=== PATIENT | female | born 1980 | race Hispanic/Latino ===

== ENCOUNTER 2020-02-04 18:33 | Emergency (ER) | payer SELFPAY ==
[~2020-02-04] VITALS: Ht 162.6 cm; Wt 59.0 kg
--- NOTE | 2020-02-04 18:52 | Emergency Department Note ---
History of Present Illnes History of Present Illness Chief Complaint: COVID PUI History of Present Illness This is a 39 year old female WHO TESTED POSITIVE FOR COVID 19 ON January PRESENTS WITH C/P FEVER, CHILLS, COUGH, SOB, BODY ACHES FOR PAST 8 DAYS, STATES TODAY DEVELOPED BURNING WITH URINATION. . Historian: Patient Arrival Mode: Car Onset (how long ago): day(s) (8) Location: ALL OVER Quality: BODY ACHES, BURNING WITH URINATION, COUGH, FEVER, CHILLS Radiation: Reports non-radiation Severity: moderate Onset quality: gradual Duration (how long): day(s) (8) Timing of current episode: constant Progression: unchanged Chronicity: new Context: Reports recent illness (POSITIVE FOR COVID 19) Relieving factors: none Exacerbating factors: none Associated symptoms: Reports cough, Reports diaphoresis, Reports fever/chills, Reports shortness of breath, Reports weakness, Reports other (BURNING WITH URINATION) Treatments prior to arrival: antipyretic Past Medical/Family History Physician Review I have reviewed the patient's past medical and family history. Any updates have been documented here. Past Medical History Recent Fever: Yes Clinical Suspicion of Infectio: Yes New/Unexplained Change in Ment: No Past Medical History: None Past Surgical History: Cholecysctectomy Social History Smoking Cessation: Never Smoker Counseling Performed: No Alcohol Use: None Any Illegal Drug Use: No Physically hurt or threatened: No Family History Family history of heart diseas: No Other Any Pre-Existing Lines (PICC,: No Review of Systems Review of Systems EENTM: Reports no symptoms Cardiovascular: Reports no symptoms Respiratory: Reports as per HPI Gastrointestinal: Reports no symptoms Genitourinary: Reports as per HPI Musculoskeletal: Reports no symptoms Integumentary: Reports no symptoms Neurological: Reports no symptoms Psychological: Reports no symptoms Endocrine: Reports no symptoms Hematological/Lymphatic: Reports no symptoms Physical Exam Related Data Allergies: Coded Allergies: No Known Allergies (Unverified , 02/04/20) Triage Vital Signs Vital Signs Date Time Temp Pulse Resp B/P (MAP) Pulse Ox O2 Delivery O2 Flow Rate FiO2 02/04/20 18:38 98.6 92 18 133/107 100 Room Air Vital signs reviewed: Yes Physical Exam CONSTITUTIONAL Constitutional: Present well-developed, Present well-nourished; Absent distressed HENT HENT: Present normocephalic, Present atraumatic, Present oropharynx clear/moist, Present nose normal HENT L/R: Present left ext ear normal, Present right ext ear normal EYES Eyes: Reports PERRL, Reports conjunctivae normal NECK Neck: Present ROM normal PULMONARY Pulmonary: Present effort normal, Present breath sounds normal CARDIOVASCULAR Cardiovascular: Present regular rhythm, Present heart sounds normal, Present capillary refill normal, Present normal rate GASTROINTESTINAL Abdominal: Present soft, Present nontender, Present bowel sounds normal GENITOURINARY Genitourinary: Present exam deferred SKIN Skin: Present warm, Present dry MUSCULOSKELETAL Musculoskeletal: Present ROM normal NEUROLOGICAL Neurological: Present alert, Present oriented x 3, Present no gross motor or sensory deficits PSYCHOLOGICAL Psychological: Present mood/affect normal, Present judgement normal Results Laboratory Laboratory Laboratory Tests Test 02/04/20 18:42 Urine Color Yellow (YELLOW) Urine Clarity Sl cloudy (CLEAR) Urine pH 6.5 (5 - 7) Urine Specific [place] 1.015 (1.010-1.025) Urine Protein Trace (NEGATIVE) Urine Glucose (UA) Negative (NEGATIVE) Urine Ketones Negative (NEGATIVE) Urine Blood 4+ (NEGATIVE) Urine Nitrite Negative (NEGATIVE) Urine Bilirubin Negative (NEGATIVE) Urine Urobilinogen 2.0 mg/dL (0.2 - 1) Urine Leukocyte Esterase 1+ (NEGATIVE) Urine RBC >50 /HPF (0-5) Urine WBC 21-50 /HPF (0-5) Urine Epithelial Cells Moderate /LPF (NONE) Urine Transitional Epithelial Cells Few (NONE) Urine Renal Epithelial Cells Few (NONE) Urine Bacteria Many /HPF (NONE) Urine Test Negative (NEGATIVE) Lab results reviewed: Yes Imaging Imaging results reviewed: Yes Impressions Procedure: [id number] DX/CHEST SINGLE (PORTABLE) Exam Date: Exam Time: REPORT STATUS: Signed EXAMINATION: CHEST SINGLE (PORTABLE) COMPARISON: None INDICATION: ^COVID POSITIVE, SOB ^Y DISCUSSION: Frontal view of the chest obtained at 1951 hours. HEART AND MEDIASTINUM: The cardiomediastinal silhouette is unremarkable. LINES: None. LUNGS/PLEURA: The lungs are well inflated and clear. No pneumonia or pulmonary edema. No pleural effusion or pneumothorax. BONES AND SOFT TISSUES: No focal osseous lesion. The soft tissues are normal. IMPRESSION: No acute cardiopulmonary disease. Signed by: Dr. Eric Back MD on 02/04/2020 8:30 PM Dictated By: ERIC BACK MD 29 Transcribed By: JEANETH on 02/04/202029 COPY TO: IDALIA MORTON MD~ Assessment & Plan Medical Decision Making MDM PT WITH COVID 19 WITH MULTIPLE RELATED SYMPTOMS AND DYSURIA CXR ORDERED TO EVAL FOR PNEUMONIA UA ORDERED TO EVAL FOR UTI pt with uti rocephin 1 gram im ordered pt discharged with omnicef 300 mg po bid for 10 days #20, zofran 4 mg odt 1 sl q 6 hours prn nause #30 Assessment & Plan Final Impression: (1) COVID-19 (2) UTI (urinary tract infection) Depart Disposition: HOME, SELF-CARE Last Vital Signs Date Time Temp Pulse Resp B/P (MAP) Pulse Ox O2 Delivery O2 Flow Rate FiO2 02/04/20 18:38 98.6 92 18 133/107 100 Room Air IDALIA MORTON MD Feb 04, 2020 18:52
[2020-02-04 19:36] LABS: BILIRUBIN,URINE NEGATIVE (NEGATIVE); CLARITY,URINE SL CLOUDY (CLEAR); COLOR,URINE YELLOW (YELLOW); KETONES,URINE NEGATIVE (NEGATIVE); LEUKOCYTE ESTERASE ,URINE 1+ (NEGATIVE); NITRITE,URINE NEGATIVE (NEGATIVE); PROTEIN,URINE DIPSTICK TRACE (NEGATIVE)
[2020-02-04 19:57] LABS: BACTERIA,URINE MANY /HPF; EPITHELIAL CELLS,URINE MODERATE /LPF; RBC,URINE >50 /HPF (0-5); RENAL EPITHELIAL CELLS,URINE FEW; TRANSITIONAL EPI CELLS,URINE FEW; WBC,URINE (MAN) 21-50 /HPF (0-5)
[2020-02-04 20:27] LABS: PREGNANCY TEST, URINE NEGATIVE (NEGATIVE)
--- NOTE | 2020-02-04 20:34 | Diagnostic Imaging Report ---
EXAMINATION: CHEST SINGLE (PORTABLE) COMPARISON: None INDICATION: ^COVID POSITIVE, SOB ^Y DISCUSSION: Frontal view of the chest obtained at 1951 hours. HEART AND MEDIASTINUM: The cardiomediastinal silhouette is unremarkable. LINES: None. LUNGS/PLEURA: The lungs are well inflated and clear. No pneumonia or pulmonary edema. No pleural effusion or pneumothorax. BONES AND SOFT TISSUES: No focal osseous lesion. The soft tissues are normal. IMPRESSION: No acute cardiopulmonary disease. Signed by: Dr. Ayaz Back MD on 02/04/2020 8:30 PM
[2020-02-04] MEDS ORDERED: CEFTRIAXONE SOD 1 GM VIAL IM ONE (20:45)
[2020-02-04] MEDS ORDERED: LIDOCAINE HCL 1% 2 ML AMP ONE (20:53)
[2020-02-04 21:24] VITALS: BP 98/78
== END 2020-02-04 21:32 | disposition home or self-care (01) ==
LOC: ER 18:43
DX: U07.1 COVID-19 (principal); N39.0 Urinary tract infection, site not specified; R05 Cough; R06.02 Shortness of breath
CPT/HCPCS: 71045; 81001; 81025; 99283; J0696; J2001